=== PATIENT | female | born 1955 | race Caucasian/White ===

== ENCOUNTER 2020-03-05 13:14 | Emergency (ER) | payer OTHER ==
[~2020-03-05] VITALS: Ht 165.1 cm; Wt 68.0 kg
[2020-03-05 13:59] VITALS: BP 104/65
--- NOTE | 2020-03-05 14:09 | NUR ---
covid swab done and sent to lab
--- NOTE | 2020-03-05 14:10 | NUR ---
Patient discharged to home in stable condition. Written and verbal after care instructions given. Patient verbalizes understanding of instruction. Pt ambulatory with a steady gait
== END 2020-03-05 14:12 | disposition home or self-care (01) ==
LOC: ER 13:18
DX: U07.1 COVID-19 (principal)
CPT/HCPCS: 99283; C9803; U0003

== ENCOUNTER 2024-09-24 11:54 | Emergency (ER) | payer OTHER ==
[~2024-09-24] VITALS: Ht 162.6 cm; Wt 59.4 kg
[2024-09-24 12:12] VITALS: BP 110/70; TEMP 98.1
[2024-09-24] MEDS ORDERED: FLUC150T PO (12:39)
[2024-09-24] MEDS ORDERED: NITR100C6 PO (12:39)
[2024-09-24 13:02] LABS: APPEARANCE,URINE SLIGHTLY CLOUDY (CLEAR); BLOOD, URINE 1+ Ery/uL (NEGATIVE); LEUKOCYTE ESTERASE ,URINE 3+ (NEGATIVE); NITRITE, URINE NEGATIVE (NEGATIVE); UGLUCOSE NEGATIVE (NEGATIVE)
[2024-09-24] MEDS ORDERED: NITROFURANTOIN/MONOHYDRATE MACROCRYSTALS 100 MG CAPSULE ONE (13:03)
[2024-09-24 13:09] VITALS: O2SAT 98
[2024-09-24] MEDS: NITROFURANTOIN/MONOHYDRATE MACROCRYSTALS 100 MG CAPSULE PO ONE (13:09)
[2024-09-24 13:48] LABS: ADD URINE CULTURE YES
[2024-09-24 13:49] LABS: SQUAMOUS EPITHELIAL CELL,UR Few /HPF (None Seen)
== END 2024-09-24 13:15 | disposition home or self-care (01) ==
LOC: ER 11:54
DX: N39.0 Urinary tract infection, site not specified (principal); E03.9 Hypothyroidism, unspecified; N89.8 Other specified noninflammatory disorders of vagina
CPT/HCPCS: 81001; 87086-TC; 87186-TC